=== PATIENT | female | born 1970 | race Caucasian/White ===

== ENCOUNTER 2020-09-09 20:06 | Inpatient (IN) | payer BC, MEDICAID ==
[~2020-09-09] VITALS: Ht 162.6 cm; Wt 95.6 kg
[2020-09-09 22:34] LABS: Basophils # (auto) 0 10 ^3/uL (0-0.2); Basophils % (auto) 0.8 % (0.0-2.0); Eosinophils # (auto) 0 10 ^3/uL (0-0.8); Hematocrit 45.4 % (36.0-46.0); Hemoglobin 16.1 g/dL (12.2-16.2); Lymphocytes # (auto) 1.5 10 ^3/uL (0.4-5.4); Lymphocytes % (auto) 43.1 % (10.0-50.0); Mean Corpuscular Hemoglobin 31.5 pg (28.0-32.0); Mean Corpuscular Hgb Conc. 35.4 g/dL (32.0-36.0); Mean Corpuscular Volume 88.9 fL (80.0-100.0); Monocytes # (auto) 0.3 10 ^3/uL (0-1.3); Monocytes % (auto) 9.1 % (0.0-12.0); Neutrophils # (auto) 1.7 10 ^3/uL (1.6-8.6); Nucleated Red Blood Cells % 0.2 %; Red Blood Cells 5.11 10^6/uL (4.0-5.20); Red Cell Distribution Width 13.1 % (11.8-14.3); White Blood Cell 3.6 10^3/uL (4.4-10.8)
[2020-09-09 22:48] LABS: Albumin 3.1 g/dL (3.4-5.0); Anion Gap 7 (5-15); Blood Urea Nitrogen 10 mg/dL (7-18); Calcium 8.2 mg/dL (8.5-10.1); Carbon Dioxide 24 mmol/L (21-32); Chloride 102 mmol/L (98-107); Glucose 139 mg/dL (74-106); Magnesium 2.3 mg/dL (1.6-2.6); Potassium 3.6 mmol/L (3.5-5.1); Sodium 133 mmol/L (136-145)
[2020-09-09 22:53] LABS: Alanine Aminotransferase 58 U/L (13-56); Alkaline Phosphatase 80 U/L (45-117); Aspartate Aminotransferase 52 U/L (15-37); BUN/Creatinine Ratio 14.1; Bilirubin, Total 0.8 mg/dL (0.2-1.0); GFR African American 113 mL/min; GFR Non-African American 93 mL/min; Total Protein 7.8 g/dL (6.4-8.2)
[2020-09-09 22:58] LABS: INR 0.95 (0.9-1.15)
[2020-09-10] VITALS (7 sets, daily range): BP systolic 112–135; BP diastolic 70–85
[2020-09-10] MEDS ORDERED: ONDANSETRON HCL 4 MG/2 ML VIAL IV PRN (00:15)
[2020-09-10] MEDS ORDERED: REMDESIVIR PER PHARMACY 0 ML IV SCH (00:15)
[2020-09-10] MEDS ORDERED: ACETAMINOPHEN 500 MG TAB PO PRN (00:15)
[2020-09-10] MEDS ORDERED: TEMAZEPAM 15 MG CAP PO PRN (00:15)
[2020-09-10] MEDS ORDERED: cefTRIAXone 1GM/50ML D5W 50 ML IV ONE (00:15)
[2020-09-10] MEDS ORDERED: MORPHINE SULF INJ 2 MG/ML SYRINGE 1ML IV PRN (00:15)
[2020-09-10] MEDS ORDERED: NITROGLYCERIN 0.4 MG SL TAB SL PRN (00:15)
[2020-09-10] MEDS: DexAMETHasone SOD PHOS 10MG/1ML VIAL INJ IV SCH ×2 (00:51→10:25)
[2020-09-10] MEDS: AZITHROMYCIN 500MG/ 250ML 250 ML IV SCH ×2 (01:22→23:12)
[2020-09-10] MEDS ORDERED: NORG1TAB5 PO (05:21)
[2020-09-10] MEDS: IPRATROPIUM BROMIDE HFA AER IN SCH ×4 (06:00→22:19)
[2020-09-10] MEDS: ASCORBIC ACID 1,000 MG TAB PO SCH (10:25)
[2020-09-10] MEDS: CHOLECALCIFEROL (VITD3) 2,000 UNIT CAP/TAB PO SCH (10:25)
[2020-09-10] MEDS: ENOXAPARIN SOD 40 MG/0.4 ML SYRINGE SC SCH ×2 (10:25→21:59)
[2020-09-10] MEDS: ZINC SULFATE 220mg CAP or TAB PO SCH (10:25)
[2020-09-10] MEDS ORDERED: REMDESIVIR 200 MG in NS 210ml LOADING DOSE ADULT IV ONE (11:00)
[2020-09-10] MEDS: ALBUTEROL SULF HFA 90MCG INH 200DOSE IN PRN ×2 (12:07→19:02)
[2020-09-10] MEDS: cefTRIAXone 1GM/50ML D5W 50 ML IV SCH (21:15)
[2020-09-11 05:00] VITALS: BP 135/79
[2020-09-11 06:25] LABS: Basophils # (auto) 0.1 10 ^3/uL (0-0.2); Basophils % (auto) 0.8 % (0.0-2.0); Eosinophils # (auto) 0 10 ^3/uL (0-0.8); Hematocrit 41.6 % (36.0-46.0); Hemoglobin 14.4 g/dL (12.2-16.2); Lymphocytes # (auto) 1.2 10 ^3/uL (0.4-5.4); Lymphocytes % (auto) 18.3 % (10.0-50.0); Mean Corpuscular Hgb Conc. 34.7 g/dL (32.0-36.0); Mean Corpuscular Volume 89.4 fL (80.0-100.0); Monocytes # (auto) 0.6 10 ^3/uL (0-1.3); Monocytes % (auto) 9.6 % (0.0-12.0); Neutrophils # (auto) 4.7 10 ^3/uL (1.6-8.6); Neutrophils % (auto) 71.3 % (37.0-80.0); Red Blood Cells 4.65 10^6/uL (4.0-5.20); White Blood Cell 6.5 10^3/uL (4.4-10.8)
[2020-09-11 07:02] LABS: Albumin 2.7 g/dL (3.4-5.0); BUN/Creatinine Ratio 17.6; Calcium 8.5 mg/dL (8.5-10.1)
[2020-09-11 07:05] LABS: Bilirubin, Total 0.3 mg/dL (0.2-1.0); Total Protein 6.8 g/dL (6.4-8.2)
[2020-09-11] MEDS: IPRATROPIUM BROMIDE HFA AER IN SCH ×4 (07:27→22:26)
[2020-09-11 08:47] LABS: Cholesterol 148 mg/dL (< 200); HDL Cholesterol 23 mg/dL (40-59); LDL Cholesterol 105 mg/dL (< 100); Triglycerides 134 mg/dL (< 150)
[2020-09-11 09:00] VITALS: BP 123/76
[2020-09-11] MEDS: CHOLECALCIFEROL (VITD3) 2,000 UNIT CAP/TAB PO SCH (10:26)
[2020-09-11] MEDS: DexAMETHasone SOD PHOS 10MG/1ML VIAL INJ IV SCH (10:26)
[2020-09-11] MEDS: ZINC SULFATE 220mg CAP or TAB PO SCH (10:26)
[2020-09-11] MEDS: ASCORBIC ACID 1,000 MG TAB PO SCH (10:26)
[2020-09-11] MEDS: ENOXAPARIN SOD 40 MG/0.4 ML SYRINGE SC SCH ×2 (10:27→21:10)
[2020-09-11 12:38] VITALS: BP 117/68
[2020-09-11] MEDS: REMDESIVIR 100mg 100 MG in SODIUM CHL 0.9% 230 ML IV SCH (15:11)
[2020-09-11 17:00] VITALS: BP 125/82
[2020-09-11] MEDS: ALBUTEROL SULF HFA 90MCG INH 200DOSE IN PRN (18:52)
[2020-09-11] MEDS: cefTRIAXone 1GM/50ML D5W 50 ML IV SCH (21:10)
[2020-09-11] MEDS: AZITHROMYCIN 500MG/ 250ML 250 ML IV SCH (22:22)
[2020-09-11 23:11] VITALS: BP 131/74
[2020-09-12 09:00] VITALS: BP 116/76
[2020-09-12] MEDS: DexAMETHasone SOD PHOS 10MG/1ML VIAL INJ IV SCH (11:24)
[2020-09-12] MEDS: ENOXAPARIN SOD 40 MG/0.4 ML SYRINGE SC SCH ×2 (11:24→21:26)
[2020-09-12] MEDS: ASCORBIC ACID 1,000 MG TAB PO SCH (11:25)
[2020-09-12] MEDS: CHOLECALCIFEROL (VITD3) 2,000 UNIT CAP/TAB PO SCH (11:25)
[2020-09-12] MEDS: ZINC SULFATE 220mg CAP or TAB PO SCH (11:25)
[2020-09-12] MEDS: IPRATROPIUM BROMIDE HFA AER IN SCH ×3 (11:44→21:37)
[2020-09-12 11:56] LABS: Urine Bacteria NONE SEEN /hpf (None Seen); Urine Blood 3+ /uL (Negative); Urine Specific Gravity 1.015 (1.001-1.035); Urine WBC 7 /hpf (0 - 5)
[2020-09-12 13:00] VITALS: BP 128/74
[2020-09-12] MEDS: REMDESIVIR 100mg 100 MG in SODIUM CHL 0.9% 230 ML IV SCH (15:30)
[2020-09-12] MEDS ORDERED: IBUP800T27 PO (16:28)
[2020-09-12 17:00] VITALS: BP 132/81
[2020-09-12] MEDS: cefTRIAXone 1GM/50ML D5W 50 ML IV SCH (21:26)
[2020-09-12] MEDS: ALBUTEROL SULF HFA 90MCG INH 200DOSE IN PRN (21:36)
[2020-09-12 22:00] VITALS: BP 127/78
[2020-09-12] MEDS: AZITHROMYCIN 500MG/ 250ML 250 ML IV SCH (22:51)
[2020-09-13] MEDS: IPRATROPIUM BROMIDE HFA AER IN SCH ×5 (00:24→22:44)
[2020-09-13 05:00] VITALS: BP 122/74
[2020-09-13] MEDS: ALBUTEROL SULF HFA 90MCG INH 200DOSE IN PRN ×2 (06:16→22:44)
[2020-09-13 08:05] LABS: Albumin 2.9 g/dL (3.4-5.0); Calcium 8.4 mg/dL (8.5-10.1); Potassium 4.1 mmol/L (3.5-5.1)
[2020-09-13 08:09] LABS: BUN/Creatinine Ratio 14.5; Bilirubin, Total 0.4 mg/dL (0.2-1.0); Total Protein 7.2 g/dL (6.4-8.2)
[2020-09-13 09:00] VITALS: BP 133/82
[2020-09-13] MEDS: ENOXAPARIN SOD 40 MG/0.4 ML SYRINGE SC SCH ×2 (09:12→21:57)
[2020-09-13] MEDS: CHOLECALCIFEROL (VITD3) 2,000 UNIT CAP/TAB PO SCH (09:12)
[2020-09-13] MEDS: ZINC SULFATE 220mg CAP or TAB PO SCH (09:12)
[2020-09-13] MEDS: ASCORBIC ACID 1,000 MG TAB PO SCH (09:12)
[2020-09-13] MEDS: DexAMETHasone SOD PHOS 10MG/1ML VIAL INJ IV SCH (09:13)
[2020-09-13 13:00] VITALS: BP 135/76
[2020-09-13] MEDS: REMDESIVIR 100mg 100 MG in SODIUM CHL 0.9% 230 ML IV SCH (14:44)
[2020-09-13 15:09] VITALS: BP 135/76
[2020-09-13 17:00] VITALS: BP 124/74
[2020-09-13] MEDS: cefTRIAXone 1GM/50ML D5W 50 ML IV SCH (20:52)
[2020-09-13] MEDS: AZITHROMYCIN 500MG/ 250ML 250 ML IV SCH (21:57)
[2020-09-13 22:00] VITALS: BP 159/77
[2020-09-14 05:00] VITALS: BP 127/69
[2020-09-14 06:44] LABS: Basophils # (auto) 0 10 ^3/uL (0-0.2); Basophils % (auto) 0.4 % (0.0-2.0); Eosinophils # (auto) 0 10 ^3/uL (0-0.8); Hematocrit 41.8 % (36.0-46.0); Hemoglobin 14.6 g/dL (12.2-16.2); Lymphocytes # (auto) 1.9 10 ^3/uL (0.4-5.4); Mean Corpuscular Hemoglobin 31.5 pg (28.0-32.0); Mean Corpuscular Hgb Conc. 34.9 g/dL (32.0-36.0); Mean Corpuscular Volume 90.2 fL (80.0-100.0); Monocytes # (auto) 0.7 10 ^3/uL (0-1.3); Monocytes % (auto) 6.1 % (0.0-12.0); Neutrophils # (auto) 8.3 10 ^3/uL (1.6-8.6); Neutrophils % (auto) 76.5 % (37.0-80.0); Nucleated Red Blood Cells % 0.1 %; Red Blood Cells 4.64 10^6/uL (4.0-5.20); Red Cell Distribution Width 13.4 % (11.8-14.3); White Blood Cell 10.9 10^3/uL (4.4-10.8)
[2020-09-14 06:56] LABS: Albumin 2.8 g/dL (3.4-5.0); Calcium 8.2 mg/dL (8.5-10.1)
[2020-09-14 06:59] LABS: BUN/Creatinine Ratio 18.6; Bilirubin, Total 0.3 mg/dL (0.2-1.0); Total Protein 6.6 g/dL (6.4-8.2)
[2020-09-14] MEDS: IPRATROPIUM BROMIDE HFA AER IN SCH ×2 (07:07→15:05)
[2020-09-14] MEDS: ALBUTEROL SULF HFA 90MCG INH 200DOSE IN PRN (07:08)
[2020-09-14 09:00] VITALS: BP 130/71
[2020-09-14] MEDS: CHOLECALCIFEROL (VITD3) 2,000 UNIT CAP/TAB PO SCH (11:59)
[2020-09-14] MEDS: ASCORBIC ACID 1,000 MG TAB PO SCH (11:59)
[2020-09-14] MEDS: DexAMETHasone SOD PHOS 10MG/1ML VIAL INJ IV SCH (11:59)
[2020-09-14] MEDS: ZINC SULFATE 220mg CAP or TAB PO SCH (11:59)
[2020-09-14] MEDS: ENOXAPARIN SOD 40 MG/0.4 ML SYRINGE SC SCH (12:00)
[2020-09-14 13:00] VITALS: BP 144/62
[2020-09-14 13:30] VITALS: BP 144/62
[2020-09-14] MEDS: REMDESIVIR 100mg 100 MG in SODIUM CHL 0.9% 230 ML IV SCH (15:09)
[2020-09-14 16:52] VITALS: BP 145/92
== END 2020-09-14 17:10 | disposition home or self-care (01) | DRG 177 ==
LOC: ER 20:09 → TELE 09-10 00:15 → TELE-EAST 09-10 04:15
PROVIDERS: ADMIT Nurse Practitioner; ATTEND Internal Medicine
PROC: XW033E5 Introduction of Remdesivir Anti-infective into Peripheral Vein, Percutaneous Approach, New Technology Group 5 (ICD-10-PCS; principal; 2020-09-10)
DX: U07.1 COVID-19 (principal); J12.82 Pneumonia due to coronavirus disease 2019; J96.01 Acute respiratory failure with hypoxia; E44.0 Moderate protein-calorie malnutrition; D68.59 Other primary thrombophilia; E11.9 Type 2 diabetes mellitus without complications; E66.01 Morbid (severe) obesity due to excess calories; Z68.36 Body mass index [BMI] 36.0-36.9, adult
CPT/HCPCS: 36415; 71045; 80053; 80061; 81001; 82043; 82306; 82728; 83036; 83605; 83615; 83735; 83880; 84443; 84484; 85025; 85379; 85610; 86141; 87040; 87426; 94640; 96365; G0378; J0696; J1100